=== PATIENT | female | born 1965 ===

== ENCOUNTER 2023-08-07 05:38 | Day surgery (SDC) | payer OTHER ==
[2023-07-12 09:57] LABS: HEMATOCRIT 42.6 % (36.0-45.00); HEMOGLOBIN 14.6 g/dL (12.0-15.00); MEAN CELL VOLUME 81.8 fL (80.00-100.00); MEAN CORPUSCULAR HEMOGLOBIN 28.1 pg (27.00-32.0); MEAN CORPUSCULAR HGB CONC 34.3 g/dl (32.0-36.0); PLATELET COUNT 269 K/uL (150-450); RED BLOOD COUNT 5.21 M/uL (4.00-6.00); RED CELL DISTRIBUTION WIDTH 13.5 % (11.5-14.5)
[2023-07-12 10:19] LABS: INR 0.98; PARTIAL THROMBOPLASTIN TIME 27.9 SECONDS (22.0-34.0); PROTHROMBIN TIME 10.3 SECONDS (9.0-11.5)
[2023-07-12 10:23] LABS: ALBUMIN 3.7 gm/dL (3.4-5.0); BILIRUBIN TOTAL 0.52 mg/dL (0.3-1.2); CALCIUM 9.4 mg/dL (8.5-10.1); CREATININE SERUM 0.78 mg/dL (0.55-1.02); GFR 75.59; GLOBULINA 3.3 G/DL (2.4-3.5); POTASSIUM 3.94 mEq/L (3.5-5.1)
[2023-08-07] MEDS ORDERED: POVIDONE-IODINE 118 ML BOTT TOP ONE ×2 (07:11→08:45)
== END 2023-08-07 15:15 | disposition home or self-care (01) ==
LOC: CIR.AMB 05:38
PROVIDERS: ATTEND Obstetrics & Gynecology Maternal & Fetal Medicine
DX: N84.0 Polyp of corpus uteri (principal)